=== PATIENT | male | born 1975 | race Caucasian/White ===

== ENCOUNTER 2016-09-03 17:09 | Emergency (ER) | payer OTHER ==
[2016-09-03] MEDS ORDERED: GLUCOSE LIQUID 30 GM TUBE PO ONE (17:29)
[2016-09-03] MEDS ORDERED: LORazepam 1 MG TABLET ONE (17:31)
[2016-09-03] MEDS ORDERED: THIAMINE HCL 200 MG/2 ML VIAL ONE (17:34)
[2016-09-03] MEDS ORDERED: MULTIVITAMINS 10 ML VIAL IV ONE (17:34)
[2016-09-03] MEDS ORDERED: MAGNESIUM SULFATE 1 GM/2 ML VIAL ONE (17:34)
[2016-09-03] MEDS ORDERED: NORMAL SALINE 1,000 ML IV ONE (17:34)
[2016-09-03 17:37] LABS: BASOPHILS 0.5 % (0.0-2.0); HEMATOCRIT 50.5 % (42.0-54.0); HEMOGLOBIN 17.4 g/dL (14.0-18.0); LYMPHOCYTES 16.6 % (20.0-40.0); LYMPHOCYTES# 1.3 X 10^3uL (0.8-3.8); MEAN CELL VOLUME 82.5 fL (80.0-100.0); MEAN CORPUS. HGB CONCENTRATION 34.5 g/dL (32.0-36.0); MEAN CORPUSCULAR HEMOGLOBIN 28.5 pg (29.0-35.0); MEAN PLATELET VOLUME 6.7 fL (7.4-10.4); MONOCYTES 4.2 % (2.0-10.0); MONOCYTES# 0.3 X 10^3uL (0.2-1.0); NEUTROPHILS 78.7 % (54.0-75.0); PLATELET COUNT 199 X 10^3uL (130-440); RED BLOOD COUNT 6.12 X 10^6uL (4.20-6.10); WHITE BLOOD COUNT 7.6 X 10^3uL (3.9-10.7)
[2016-09-03] MEDS ORDERED: BENZTROPINE MESYLATE 2 MG/2 ML AMP ONE (17:37)
[2016-09-03] MEDS ORDERED: HALOPERIDOL 5 MG/ML VIAL ONE (17:37)
[2016-09-03 17:49] LABS: ALBUMIN 4.8 g/dL (3.5-5.0); ALKALINE PHOSPHATASE 80 U/L (38-126); ALT 88 U/L (21-72); AST 131 U/L (17-59); BILIRUBIN, DIRECT 0.5 mg/dL (0.0-0.4); BILIRUBIN, TOTAL 1.3 mg/dL (0.2-1.3); BLOOD UREA NITROGEN 12 mg/dL (9-20); CALCIUM 8.3 mg/dL (8.4-10.2); CHLORIDE 104 mmol/L (98-107); CREATININE 0.8 mg/dL (0.7-1.3); EST GLOMERULAR FILTRATION RATE > 60 mL/min; GLUCOSE 60 mg/dL (70-100); LIPASE 169 U/L (23-300); MAGNESIUM 2.4 mg/dL (1.6-2.3); POTASSIUM 3.9 mmol/L (3.5-5.1); SODIUM 142 mmol/L (137-145); TOTAL PROTEIN 8.4 g/dL (6.3-8.2)
[2016-09-03 17:52] LABS: URINE MUCUS NONE SEEN (Up to 25%); URINE RBC NONE SEEN (0-5/hpf)
[2016-09-03 17:59] LABS: ETHYL ALCOHOL 335 mg/dL (<10)
[2016-09-03 18:03] LABS: URINE AMORPHOUS SEDIMENT UP TO 25%/lpf (Up to 25%); URINE APPEARANCE CLEAR; URINE BACTERIA NONE SEEN (<10/hpf); URINE BILIRUBIN NEGATIVE (NEGATIVE); URINE BLOOD 50 Ery/uL (2+) (NEGATIVE); URINE COLOR YELLOW; URINE GLUCOSE NORMAL (NEGATIVE); URINE KETONE 100mg/dL (3+) (NEGATIVE); URINE LEUKOCYTE ESTERASE NEGATIVE (NEGATIVE); URINE NITRITE NEGATIVE (NEGATIVE); URINE PROTEIN 300mg/dL (3+) (NEG - TRACE); URINE SPECIFIC GRAVITY 1.025 (0.001-1.035); URINE SQUAMOUS EPITHELIAL CELL 0-5/hpf (<= 15/hpf); URINE UROBILINOGEN 0.2mg/dL (Normal) (NEG-1mg/dL); URINE WBC 0-4/hpf (0-4/hpf)
[2016-09-03 18:18] LABS: THYROID STIMULATING HORMONE 1.38 uIU/mL (0.47-4.68)
--- NOTE | 2016-09-03 19:02 | ER PHYSICIAN DOCUMENTATION ---
Physician Documentation [facility] Name:Ian Kong Age:41 yrs Sex:Male :1975 Arrival Date:09/03/2016 Time:17:09 BedTrauma A Private MD: ED Pablo Copeland Disposition: 09/03/16 18:19 Discharged to Home/Self Care. Impression: Alcohol Intoxication, Dependence Acute, Alcohol Abuse, Dehydration. - Condition is Fair. - Discharge Instructions: DEHYDRATION (5y-Adult), Abuse, Alcohol - ALCOHOL INTOXICATION. - Medical Reconciliation form form. - Follow up: Private Physician; When: Tomorrow; Reason: Recheck today's complaints, Continuance of care. - Problem is new. - Symptoms have improved. HPI: 09/03 17:15 This 41 yrs old Male presents to ER via EMS with complaints of ETOH Abuse. cd 17:15 The patient presents to the emergency department after a known overdose, that was cd intentional. Context: Method: the patient has a confirmed or suspected ingestion, of alcohol, Time: today, Extent: severe ingestion, [address] on way to [facility]. 17:15 Context: the OD/poisoning occurred at at home, and was witnessed [facility] sent him cd to the ED because of high ETOH, unsteadiness and anxiety., Previous OD/poisoning history: yes. Associated signs and symptoms: Pertinent positives: anxiety, nausea, tearfulness, Pertinent negatives: auditory hallucinations, diaphoresis, diarrhea, loss of consciousness, palpitations, shortness of breath, visual hallucinations, vomiting. The EMS care prior to arrival includes: IV fluids, oral glucose administered, with improved response, saline lock. Severity of symptoms: At their worst the symptoms were moderate in the emergency department the symptoms are unchanged. Patient is uncooperative, very anxious and wanting to get up and leave. He is not a danger to staff or self.. Historical: - Allergies: No known drug Allergies; - Home Meds: 1. lisinopril/hctz 2. Hypertension med 3. High cholesterol med - PMHx: ALCOHOLISM; HIGH CHOLESTEROL; HYPERTENSION; Alcohol Gastritis, w/o Hemorrhage (April 08, 2016); - PSHx: CERVICAL SPINE SURGERY; finger; feet surgery; - Tetanus: < 10 years. - Ebola Screening: : No symptoms or risks identified at this time. . - Immunization history: Flu Vaccine unknown. - Social history: Smoking status: Patient uses tobacco products, current every day smoker. Patient uses alcohol on a daily basis. ROS: 18:05 ENT: Negative for injury, pain, epistaxis and discharge. cd Neck: Negative for injury, pain, stiffness and swelling. Back: Negative for injury, pain or muscle spasms. : Negative for injury, bleeding, discharge, swelling, dysuria, frequency or urgency. MS/Extremity: Negative for injury, deformity, edema, calf tenderness, pain or coldness. 18:05 Skin: Negative for injury, rash, itching and discoloration. cd 18:05 Constitutional: Positive for malaise, poor PO intake, Negative for chills, fever. 18:05 Cardiovascular: Negative for chest pain, palpitations. 18:05 Respiratory: Negative for dyspnea on exertion, hemoptysis, shortness of breath, wheezing, Patient is hyperventilating on arrival. 18:05 Abdomen/GI: Positive for nausea, anorexia, Negative for abdominal pain, vomiting, diarrhea, hematemesis, black/tarry stool, rectal bleeding. 18:05 Neuro: Positive for altered mental status, weakness, Negative for dizziness, headache, loss of consciousness, seizure activity, speech changes, syncope. 18:05 Psych: Positive for anxiety, alcohol dependence, Negative for auditory hallucinations, visual hallucinations, homicidal ideation, suicide gesture, suicidal ideation. 18:05 All other systems are negative. Exam: ENT: Nares patent. No nasal discharge, no septal abnormalities noted. Tympanic membranes are normal and external auditory canals are clear. Oropharynx with no redness, swelling, or masses, exudates, or evidence of obstruction, uvula midline. Mucous membranes dry and he has a lip fissure Abdomen/GI: Soft, non-tender, with normal bowel sounds. No distension or tympany. No guarding or rebound. No evidence of tenderness throughout. Back: No spinal tenderness. No costovertebral tenderness. Full range of motion. Skin: Warm, dry with normal turgor. Flushed color with no rashes, no lesions, and no evidence of cellulitis. 18:07 MS/ Extremity: Pulses equal, no cyanosis. Neurovascular intact. Full, normal range cd of motion. 18:07 Constitutional: The patient appears alert, awake, well developed, well nourished, agitated, anxious, in obvious distress, moderately distressed. 18:07 Cardiovascular: Rate: tachycardic, Rhythm: regular, Pulses: no pulse deficits are appreciated, Heart sounds: normal. 18:07 Respiratory: the patient does not display signs of respiratory distress, Respirations: normal, no acute changes, Breath sounds: are normal, clear throughout. 18:07 Neuro: Orientation: appropriate for stated age, to person, place & time. Mentation: lucid, slow to respond, Cranial nerves: CN II- XII are normal as tested, Cerebellar function: unable to test, Motor: moves all fours, Sensation: is normal, seizure activity, is not displayed by the patient. 18:07 Psych: Behavior/mood is anxious, uncooperative, depressed, Affect is flat, Oriented to person, place, Patient has no thoughts/intents to harm self or others. Judgement / Insight is impaired. Delusions/hallucinations are not present. Vital Signs: 17:23 BP 134 / 74; Pulse 102; Temp 97.1; Pulse Ox 95% on R/A; Weight 90.72 kg; Height 5 ft. 9 ma in. (175.26 cm) (R); Pain 0/10; 17:37 BP 131 / 72; Pulse 96; Resp 22; Pulse Ox 99% ; ma 18:00 BP 130 / 76; Pulse 101; Resp 18; Pulse Ox 94% on R/A; ma 18:30 BP 143 / 89; Pulse 119; Resp 18; Pulse Ox 93% on R/A; ma 17:23 Body Mass Index 29.53 (90.72 kg, 175.26 cm) oh B[place]iff Coma Score: 18:07 Eye Response: spontaneous(4). Verbal Response: oriented(5). Motor Response: obeys cd commands(6). Total: 15. MDM: 17:20 Differential diagnosis: Ingestion/exposure to ETOH hypoglycemia, Dehydration, Anxiety. cd 17:25 Patient medically screened. cd 17:30 Data reviewed: vital signs, nurses notes, old medical records, and as a result, I will cd continue to observe the patient, administer IV fluids, NS bolus, NS maintenence, Rally Pack,, prescribe sedation medication, lorazepam, halperidol. Data interpreted: Pulse oximetry: on room air is 93 %. Interpretation: normal. 18:10 Counseling: I had a detailed discussion with the patient and/or guardian regarding: the cd historical points, exam findings, and any diagnostic results supporting the discharge/admit diagnosis, lab results, the need for outpatient follow up, for a recheck, with the patient's primary care provider, to return to the emergency department if symptoms worsen or persist or if there are any questions or concerns that arise at home. Response to treatment: the patient's symptoms have markedly improved after treatment, the patient's condition has returned to base line, and as a result, I will discharge patient. 09/03 17:40 Order name: CBC AUTO DIF, MDIF/RMOR IF IND; Complete Time: 18:31 EDPA 09/03 17:54 Interpretation: Normal Except: NEUTROPHILS 78.7; Mild Left Shift. 09/03 17:50 Order name: BASIC METABOLIC PANEL; Complete Time: 18:31 EDPA 09/03 17:55 Interpretation: Normal Except: CARBON DIOXIDE 15; GLUCOSE 60; Dehydration, Metabolic cd Acidosis, Hypoglycemia. 09/03 17:50 Order name: MAGNESIUM; Complete Time: 18:31 EDPA 09/03 17:55 Interpretation: Normal. 09/03 17:50 Order name: HEPATIC PANEL; Complete Time: 18:31 EDPA 09/03 17:55 Interpretation: Normal Except: ALT 88; AST 131. 09/03 17:50 Order name: LIPASE; Complete Time: 18:31 EDPA 09/03 17:55 Interpretation: Normal. 09/03 18:00 Order name: ETHYL ALCOHOL; Complete Time: 18:31 EDPA 09/03 18:11 Interpretation: Abnormal: ETHYL ALCOHOL 335. 09/03 18:05 Order name: UA W/ MICRO -CULTURE IF IND; Complete Time: 18:12 EDPA 09/03 18:12 Interpretation: Normal Except: URINE PROTEIN 300mg/dL (3+); URINE KETONE 100mg/dL (3+); cd URINE BLOOD 50 Mitchell/uL (2+). 09/03 18:06 Order name: URINE DRUG SCREEN, QUAL; Complete Time: 18:12 EDPA 09/03 18:12 Interpretation: Abnormal: BEN[place]ES PRESUMPTIVE POS. cd 09/03 18:21 Order name: THYROID STIMULATING HORMONE; Complete Time: 18:31 EDPA 09/03 18:31 Interpretation: Normal: THYROID STIMULATING HORMONE 1.38. 09/03 17:26 Order name: Continuous Cardiac Monitoring; Complete Time: 17:40 cd 09/03 17: Order name: I & O; Complete Time: 17:40 cd 09/03 17: Order name: Iv Saline Lock; Complete Time: 17:40 cd 09/03 17: Order name: NPO; Complete Time: 17:40 cd 09/03 17:26 Order name: Pulse Ox Continuous; Complete Time: 17:40 cd 09/03 17: Order name: Suicide Precautions; Complete Time: 17:40 cd 09/03 17: Order name: Accucheck; Complete Time: 17:56 cd Dispensed Medications: 17:22 Drug: Ativan 1 mg; Route: PO; cb 18:16 Follow up: Response: Anxiety decreased ma 17:34 Drug: Haldol 4 mg; Route: IVP; Site: left hand; cb 18:17 Follow up: Response: No adverse reaction ma 17:39 Drug: Cogentin 1 mg; Route: IVP; Site: left hand; cb 18:17 Follow up: Response: No adverse reaction ma 17:40 Drug: Banana Bag - (NS 0.9% 1000 ml, folic acid 600 mcg, Thiamine 100 mg, Multivitamin cb 10 ml, Magnesium Sulfate 1 grams); Route: IV; Rate: calculated rate; Site: left hand; 18:44 Follow up: IV Status: Infusion discontinued; IV Intake: 800ml ma 18:45 Follow up: Response: No adverse reaction ma 18:44 CANCELLED (Physician Discretion): NS 0.9% 1000 ml IV at bolus once ma Point of Care Testing: Blood Glucose: 17:56 Blood Glucose: 129 mg/dL; ma Ranges: Critical Glucose Levels:Adult <50 mg/dl or >400 mg/dl <40 mg/dl or >180 mg/dl Signatures: Kylah Canales RN RN Claudia Ling RN RN Pablo Tuttle MD MD
--- NOTE | 2016-09-03 19:02 | ER NURSING DOCUMENTATION ---
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 Transition of care: [place]. 17:16 Acuity: SHAZIA 3 ma 17:16 Method Of Arrival: EMS: 410 ma 17:41 Care prior to arrival: IV initiated. gauge and site 20G via L hand Saline lock cb initiated. Glucose check. 56 IV Fluids given by EMS NS 1000 ml Medication(s) given: oral sugar given by EMS Labs. Triage Assessment: 17:23 General: Appears unkempt, well developed, well nourished, Behavior is anxious, ma cooperative. Pain: Denies pain. Historical: - Allergies: No known drug Allergies; - Home Meds: 1. lisinopril/hctz 2. Hypertension med 3. High cholesterol med - PMHx: ALCOHOLISM; HIGH CHOLESTEROL; HYPERTENSION; Alcohol Gastritis, w/o Hemorrhage (April 08, 2016); - PSHx: CERVICAL SPINE SURGERY; finger; feet surgery; - Tetanus: < 10 years. - Ebola Screening: : No symptoms or risks identified at this time. . - Immunization history: Flu Vaccine unknown. - Social history: Smoking status: Patient uses tobacco products, current every day smoker. Patient uses alcohol on a daily basis. Screenin:24 Infectious Disease Risk Unable to Obtain. Abuse screen: Denies threats or abuse. ma Nutritional screening: No deficits noted. Suicide Risk Assessment: Unable to obtain due to. Assessment: 17:56 Reassessment: Pt states he feels anxious Lights dimmed, mult warmed blankets ma Reassurance given. 18:34 Reassessment: Pt not cooperative with monitoring equipment. ma 18:43 Reassessment: Patient states feeling better. Patient states symptoms have improved. ma Patient appears in no apparent distress at this time. Awaits [place]. 19:00 Reassessment: Able to ambulate to wheelchair without assist. ma Vital Signs: 17:23 BP 134 / 74; Pulse 102; Temp 97.1; Pulse Ox 95% on R/A; Weight 90.72 kg; Height 5 ft. 9 ma in. (175.26 cm) (R); Pain 0/10; 17:37 BP 131 / 72; Pulse 96; Resp 22; Pulse Ox 99% ; ma 18:00 BP 130 / 76; Pulse 101; Resp 18; Pulse Ox 94% on R/A; ma 18:30 BP 143 / 89; Pulse 119; Resp 18; Pulse Ox 93% on R/A; ma 17:23 Body Mass Index 29.53 (90.72 kg, 175.26 cm) ma Kevin Coma Score: 18:07 Eye Response: spontaneous(4). Verbal Response: oriented(5). Motor Response: obeys cd commands(6). Total: 15. ED Course: 17:10 Patient arrived in ED. ds 17:16 Claudia Hall, EBONY is Primary Nurse. ma 17:17 Triage completed. ma 17:25 Pablo Kwon MD is Attending Physician. cd 17:25 Valuables Remains with patient Patient has correct armband on for positive ma identification. Bed in low position. Call light in reach. Side rails up X2. 17:25 cardiovascular disease specialist on. Pulse ox on. NIBP on. ma 17:52 Assisted with urinal. cb 18:43 Discontinued IV intact, bleeding controlled, pressure dressing applied, Pt removes own ma IV Dr Kwon aware, not to restart. Administered Medications: 17:22 Drug: Ativan 1 mg; Route: PO; cb 18:16 Follow up: Response: Anxiety decreased ma 17:34 Drug: Haldol 4 mg; Route: IVP; Site: left hand; cb 18:17 Follow up: Response: No adverse reaction ma 17:39 Drug: Cogentin 1 mg; Route: IVP; Site: left hand; cb 18:17 Follow up: Response: No adverse reaction ma 17:40 Drug: Banana Bag - (NS 0.9% 1000 ml, folic acid 600 mcg, Thiamine 100 mg, Multivitamin cb 10 ml, Magnesium Sulfate 1 grams); Route: IV; Rate: calculated rate; Site: left hand; 18:44 Follow up: IV Status: Infusion discontinued; IV Intake: 800ml ma 18:45 Follow up: Response: No adverse reaction ma 18:44 CANCELLED (Physician Discretion): NS 0.9% 1000 ml IV at bolus once ga Point of Care Testing: Blood Glucose: 17:56 Blood Glucose: 129 mg/dL; ma Ranges: Intake: 17:41 IV: 500ml (NS); Total: 500ml. cb 18:44 IV: 800ml; Total: 1300ml. ma Output: 17:51 Urine: 700ml (Voided); Total: 700ml. Outcome: 18:19 Discharge ordered by . cd 18:59 Discharged to [facility] 18:59 Condition: stable 18:59 Discharge instructions given to [place] Staff Instructed on discharge instructions, follow up and referral plans. Demonstrated understanding of instructions. 19:01 Patient left the ED. ga Signatures: Kylah Canales, RN RN Claudia Ling RN RN mark Chavarria, Gregoria, Reg Reg ds Pablo Kwon MD MD cd
== END 2016-09-03 19:02 | disposition home or self-care (01) ==
LOC: ER 17:09
DX: F10.229 Alcohol dependence with intoxication, unspecified (principal); E86.0 Dehydration; R53.81 Other malaise; R06.4 Hyperventilation; R41.9 Unspecified symptoms and signs involving cognitive functions and awareness; F32.9 Major depressive disorder, single episode, unspecified; I10 Essential (primary) hypertension; Z79.899 Other long term (current) drug therapy; Z74.3 Need for continuous supervision
CPT/HCPCS: 80048; 80076; 80305; 80320; 81001; 83690; 83735; 84443; 85025; 96365; 96375; 99284; A0425; A0429; J0515; J1630; J3475; J7030

== ENCOUNTER 2016-09-04 17:00 | Emergency (ER) | payer OTHER ==
[2016-09-04] MEDS ORDERED: NORMAL SALINE 1,000 ML IV ONE (17:25)
[2016-09-04] MEDS ORDERED: MULTIVITAMINS 10 ML VIAL IV ONE (17:25)
[2016-09-04] MEDS ORDERED: THIAMINE HCL 200 MG/2 ML VIAL ONE (17:25)
[2016-09-04] MEDS ORDERED: MAGNESIUM SULFATE 1 GM/2 ML VIAL ONE (17:25)
[2016-09-04 17:30] LABS: BLOOD UREA NITROGEN 13 mg/dL (9-20); CALCIUM 9.5 mg/dL (8.4-10.2); CHLORIDE 97 mmol/L (98-107); CREATININE 0.8 mg/dL (0.7-1.3); EST GLOMERULAR FILTRATION RATE > 60 mL/min; GLUCOSE 86 mg/dL (70-100); MAGNESIUM 1.9 mg/dL (1.6-2.3); POTASSIUM 3.3 mmol/L (3.5-5.1); SODIUM 135 mmol/L (137-145)
[2016-09-04 17:31] LABS: ETHYL ALCOHOL < 10 mg/dL (<10)
[2016-09-04] MEDS ORDERED: ONDANSETRON HCL 4 MG/2 ML VIAL ONE (17:47)
[2016-09-04] MEDS ORDERED: POTASSIUM CHLORIDE/NS 1,000 ML IV ONE (17:47)
--- NOTE | 2016-09-04 18:36 | ER PHYSICIAN DOCUMENTATION ---
Physician Documentation [facility] Name:Ian Kong Age:41 yrs Sex:Male :1975 Arrival Date:09/04/2016 Time:17:00 Bed4 Private MD: Pablo Keating Disposition: 09/04/16 17:39 Discharged to Home/Self Care. Impression: Dehydration, Hypokalemia, Nausea. - Condition is Fair. - Discharge Instructions: DEHYDRATION (5y-Adult), HYPOKALEMIA. - Medical Reconciliation form form. - Follow up: Private Physician; When: Tomorrow; Reason: Recheck today's complaints, Continuance of care. - Problem is an ongoing problem. - Symptoms have improved. HPI: 09/04 17:05 This 41 yrs old Male presents to ER via Private Vehicle with complaints of cd Dehydration. 17:05 The patient was recently seen in the [facility] ED for Alcohol Intoxication and Dehydration. cd He was admitted to [facility] here in [place]. The patient was sent to the ED for IV hydration from [place]. He has been lightheaded and mildly confused and anxious.. Onset: The symptom(s)/episode began/occurred acutely, 2 day(s) ago. Severity of symptoms: At their worst the symptoms were moderate in the emergency department the symptoms are unchanged. The patient has experienced similar episodes in the past. Historical: - Allergies: No known drug Allergies; - Home Meds: 1. gabapentin oral 2. Chlordiazepoxide Oral 3. Clonidine Oral 4. levetiracetam oral 5. Naproxen Oral 6. lisinopril/HCTZ 7. Prilosec Oral - PMHx: ALCOHOLISM; HIGH CHOLESTEROL; HYPERTENSION; Alcohol Intoxication, Dependence Acute (September 03, 2016); Alcohol Abuse (September 03, 2016); Dehydration (September 03, 2016); - PSHx: CERVICAL SPINE SURGERY; - Tetanus: unknown. - Ebola Screening: : Patient negative for fever greater than or equal to 101.5 degrees Fahrenheit, and additional compatible Ebola Virus Disease symptoms. Patient denies exposure to infectious person. Patient denies travel to an Ebola-affected area in the 21 days before illness onset. No symptoms or risks identified at this time. . - Immunization history: Flu Vaccine unknown. - Social history: Smoking status: unknown if patient ever smoked tobacco. ROS: 17:10 ENT: Negative for injury, pain, epistaxis and discharge. cd Neck: Negative for injury, pain, stiffness and swelling. Back: Negative for injury, pain or muscle spasms. : Negative for injury, bleeding, discharge, swelling, dysuria, frequency or urgency. MS/Extremity: Negative for injury, deformity, edema, calf tenderness, pain or coldness. 17:10 Skin: Negative for injury, rash, itching and discoloration. cd 17:10 Constitutional: Positive for malaise, poor PO intake, Negative for chills, fever. 17:10 Cardiovascular: Positive for palpitations, Negative for chest pain, edema, orthopnea. 17:10 Respiratory: Negative for hemoptysis, pleurisy, shortness of breath, sputum production. 17:10 Abdomen/GI: Positive for nausea, anorexia, Negative for vomiting, diarrhea, abdominal distension, hematemesis, black/tarry stool, rectal bleeding. 17:10 Neuro: Positive for dizziness, Negative for gait disturbance, headache, loss of consciousness, seizure activity, speech changes, syncope, near syncope, visual changes, weakness. 17:10 Psych: Positive for anxiety. 17:10 All other systems are negative. Exam: Head/Face: Normocephalic, atraumatic. Eyes: Pupils equal round and reactive to light, extra-ocular motions intact. Lids and lashes normal. Conjunctiva and sclera are non-icteric and not injected. Cornea within normal limits. Periorbital areas with no swelling, redness, or edema. ENT: Nares patent. No nasal discharge, no septal abnormalities noted. Tympanic membranes are normal and external auditory canals are clear. Oropharynx with no redness, swelling, or masses, exudates, or evidence of obstruction, uvula midline. Mucous membranes dry 17:10 Neck: Trachea midline, no thyromegaly or masses palpated, and no cervical cd lymphadenopathy. Supple, full range of motion without nuchal rigidity, or vertebral point tenderness. No Meningismus. Back: No spinal tenderness. No costovertebral tenderness. Full range of motion. Skin: Warm, dry with normal turgor. Normal color with no rashes, no lesions, and no evidence of cellulitis. 17:10 MS/ Extremity: Pulses equal, no cyanosis. Neurovascular intact. Full, normal range of motion. 17:10 Constitutional: The patient appears alert, awake, non-diaphoretic, non-toxic, well developed, well nourished, anxious, flushed 17:10 Cardiovascular: Rate: tachycardic, Rhythm: regular, Pulses: no pulse deficits are appreciated, Heart sounds: normal. 17:10 Respiratory: the patient does not display signs of respiratory distress, Respirations: normal, no acute changes, Breath sounds: are normal, clear throughout. 17:10 Abdomen/GI: Inspection: abdomen appears normal, Bowel sounds: active, Palpation: abdomen is soft and non-tender, rebound tenderness, is not appreciated, voluntary guarding, is not appreciated, involuntary guarding, is not appreciated, no appreciated organomegaly, Indicators: McBurney's point is not tender, Hugo's sign is negative. 17:10 Neuro: Orientation: is normal, appropriate for stated age, Mentation: lucid, slow to respond, Memory: is normal, Cranial nerves: CN II- XII are normal as tested, Motor: is normal, Sensation: is normal, Gait: is steady. Vital Signs: 17:28 BP 151 / 97; Pulse 114; Resp 12; Temp 99.2(TE); Pulse Ox 93% on R/A; Pain 0/10; sj 18:06 BP 137 / 96; Pulse 108; Resp 20; Pulse Ox 95% on R/A; sj Barron Coma Score: 17:10 Eye Response: spontaneous(4). Verbal Response: oriented(5). Motor Response: obeys cd commands(6). Total: 15. MDM: 17:10 Differential Diagnosis Dehydration, Electrolyte Imbalance, . cd 17:15 Data reviewed: vital signs, nurses notes, old medical records, and as a result, I will cd continue to observe the patient, administer IV fluids, NS bolus, NS maintenence, and give a rally pack.. Data interpreted: Pulse oximetry: on room air is 95 %. Interpretation: normal. 17:33 Patient medically screened. cd 17:40 Counseling: I had a detailed discussion with the patient and/or guardian regarding: the cd historical points, exam findings, and any diagnostic results supporting the discharge/admit diagnosis, lab results, the need for outpatient follow up, for a recheck, with the patient's primary care provider, to return to the emergency department if symptoms worsen or persist or if there are any questions or concerns that arise at home. Response to treatment: the patient's symptoms have markedly improved after treatment, the patient's condition has returned to base line, patient is well hydrated. and as a result, I will discharge patient. 09/04 17:32 Order name: BASIC METABOLIC PANEL; Complete Time: 17:34 EDMS 09/04 17:33 Interpretation: Normal Except: Hypochloremic Hyponatremia, Hypokalemia. 09/04 17:32 Order name: MAGNESIUM; Complete Time: 17:34 EDMS 09/04 17:33 Interpretation: Normal. 09/04 17:32 Order name: ETHYL ALCOHOL; Complete Time: 17:34 EDMS 09/04 17:33 Interpretation: Normal. 09/04 17:37 Order name: IV saline lock X2; Complete Time: 17:55 cd Dispensed Medications: 17:00 Drug: NS 0.9% 1000 ml; Route: IV; Rate: bolus; Site: left antecubital; sj 17:54 Follow up: IV Status: Completed infusion sj 17:25 Drug: Banana Bag - (NS 0.9% 1000 ml, folic acid 600 mcg, Thiamine 100 mg, Multivitamin tg 10 ml, Magnesium Sulfate 1 grams); Route: IV; Rate: calculated rate; Infused Over: 40 mins; Site: left antecubital; Delivery: [place] [facility]; 17:53 Follow up: IV Status: Completed infusion; IV Intake: 1000ml sj 17:45 Drug: NS with KCl 20 mEq/L 1000 ml/hr; Volume: 1000 ml; Route: IV; Rate: 1000 ml/hr; sj Infused Over: 1 hrs; Site: right forearm; 18:33 Follow up: IV Status: Completed infusion; IV Intake: 1000ml sj 17:47 Drug: Zofran 4 mg; Route: IVP; Infused Over: 2 mins; Site: right forearm; sj 18:34 Follow up: Response: Nausea is decreased sj 17:50 Drug: NS 0.9% 1000 ml; Route: IV; Rate: bolus; Site: right antecubital; sj 18:33 Follow up: IV Status: Completed infusion; IV Intake: 1000ml sj Signatures: Librado Garcia RN RN Pablo Rashid MD MD cd Janzen, Sarah
--- NOTE | 2016-09-04 18:36 | ER NURSING DOCUMENTATION ---
Nurse's Notes [facility] Name:Ian Kong Age:41 yrs Sex:Male :1975 Arrival Date:09/04/2016 Time:17:00 Bed4 Private MD: Diagnosis:Dehydration;Hypokalemia;Nausea Presentation: 09/04 17:07 Acuity: SHAZIA 2 tg 17:27 Presenting complaint: Doctor from [facility] called to say pt is being sent over for tg banana bag and IVF therapy due to tachycardia and confusion. Transition of care: D[place]. 17:27 Method Of Arrival: Private Vehicle tg Triage Assessment: 17:18 General: Appears in no apparent distress, Behavior is flat. Pain: Complains of pain in tg lower back and behind eyes. Neuro: Level of Consciousness is confused, lethargic. Neuro: Oriented to person. Cardiovascular: Capillary refill < 3 seconds. Respiratory: Respiratory effort is even, unlabored. Historical: - Allergies: No known drug Allergies; - Home Meds: 1. gabapentin oral 2. Chlordiazepoxide Oral 3. Clonidine Oral 4. levetiracetam oral 5. Naproxen Oral 6. lisinopril/HCTZ 7. Prilosec Oral - PMHx: ALCOHOLISM; HIGH CHOLESTEROL; HYPERTENSION; Alcohol Intoxication, Dependence Acute (September 03, 2016); Alcohol Abuse (September 03, 2016); Dehydration (September 03, 2016); - PSHx: CERVICAL SPINE SURGERY; - Tetanus: unknown. - Ebola Screening: : Patient negative for fever greater than or equal to 101.5 degrees Fahrenheit, and additional compatible Ebola Virus Disease symptoms. Patient denies exposure to infectious person. Patient denies travel to an Ebola-affected area in the 21 days before illness onset. No symptoms or risks identified at this time. . - Immunization history: Flu Vaccine unknown. - Social history: Smoking status: unknown if patient ever smoked tobacco. Screenin:17 Fall Risk IV access (20 points). Ambulatory Aid- Gait- Impaired (20 pts.). Mental tg Status- Overestimates/Forgets Limitations (15 pts.). Total Morales Fall Scale indicates High Risk Score (45 or more points). Fall prevention measures have been instituted. Side Rails Up X 2 Placed Close to Nursing Station Frequent Obs/Assessments Occuring As available patient and family educated on Fall Prevention Program and Strategies. 18:04 Infectious Disease Risk None. Abuse screen: Denies threats or abuse. Denies injuries sj from another. Nutritional screening: Difficulty chewing/swallowing? Yes says "it's difficult to swallow fluids while I'm like this.". Suicide Risk Assessment: Suicidal Thinking Present - No ( 0 points). Assessment: 17:26 Reassessment: Pt more alert now. Anxious to finish IVF and be D/C'd. Pt able to tg ambulate to bathroom with one assist. Much improved in brief time here. Could not get out of wheelchair upon arrival and required to staff to assist to his feet and over to the bed. . Vital Signs: 17:28 BP 151 / 97; Pulse 114; Resp 12; Temp 99.2(TE); Pulse Ox 93% on R/A; Pain 0/10; sj 18:06 BP 137 / 96; Pulse 108; Resp 20; Pulse Ox 95% on R/A; sj Kevin Coma Score: 17:10 Eye Response: spontaneous(4). Verbal Response: oriented(5). Motor Response: obeys cd commands(6). Total: 15. ED Course: 17:01 Patient arrived in ED. lm3 17:05 Librado Garcia, RN is Primary Nurse. tg 17:07 Triage completed. tg 17:17 Valuables Remains with patient. Pulse ox on. Verbal reassurance given. Pillow given. tg 17:19 Arm band placed on Bed in low position Call Light in Reach Gowned HOB Elevated Side tg rails up x2. 17:27 Labs drawn. (by ED staff). Inserted peripheral IV: 20 gauge in left antecubital area sj and blood collected. 17:33 Pablo Kwon MD is Attending Physician. cd 17:52 Inserted peripheral IV: 20 gauge in right forearm. sj Administered Medications: 17:00 Drug: NS 0.9% 1000 ml; Route: IV; Rate: bolus; Site: left antecubital; sj 17:54 Follow up: IV Status: Completed infusion sj 17:25 Drug: Banana Bag - (NS 0.9% 1000 ml, folic acid 600 mcg, Thiamine 100 mg, Multivitamin tg 10 ml, Magnesium Sulfate 1 grams); Route: IV; Rate: calculated rate; Infused Over: 40 mins; Site: left antecubital; Delivery: [place] [facility]; 17:53 Follow up: IV Status: Completed infusion; IV Intake: 1000ml sj 17:45 Drug: NS with KCl 20 mEq/L 1000 ml/hr; Volume: 1000 ml; Route: IV; Rate: 1000 ml/hr; sj Infused Over: 1 hrs; Site: right forearm; 18:33 Follow up: IV Status: Completed infusion; IV Intake: 1000ml sj 17:47 Drug: Zofran 4 mg; Route: IVP; Infused Over: 2 mins; Site: right forearm; sj 18:34 Follow up: Response: Nausea is decreased sj 17:50 Drug: NS 0.9% 1000 ml; Route: IV; Rate: bolus; Site: right antecubital; sj 18:33 Follow up: IV Status: Completed infusion; IV Intake: 1000ml sj Intake: 17:53 IV: 1000ml; Total: 1000ml. sj 18:33 IV: 1000ml; Total: 2000ml. sj 18:33 IV: 1000ml; Total: 3000ml. Outcome: 17:27 Instructed on tg 17:39 Discharge ordered by . lon 18:32 Discharged to [facility] 18:32 Condition: improved 18:32 Report given to [facility] RN 18:32 IV D/Kem 18:35 Patient left the ED. Signatures: Librado Garcia, RN RN Pablo Rashid MD MD cd Janzen, Sarah sj McKibbon-Moore, Lisa lm3
== END 2016-09-04 18:36 | disposition home or self-care (01) ==
LOC: ER 17:00
DX: E86.0 Dehydration (principal); E87.6 Hypokalemia; R11.0 Nausea; R53.81 Other malaise; R00.2 Palpitations; R42 Dizziness and giddiness; R00.0 Tachycardia, unspecified; I10 Essential (primary) hypertension; F10.20 Alcohol dependence, uncomplicated; Z79.899 Other long term (current) drug therapy
CPT/HCPCS: 80048; 80320; 83735; 99284; J2405; J3475; J3480; J7030